=== PATIENT | female | born 1970 | race Caucasian/White ===

== ENCOUNTER → 2023-11-23 06:47 | Outpatient (REF) | payer BC, SELFPAY | LOC: HWWDC 06:47 | PROVIDERS: ATTENDING PHYSICIAN Physician Assistant Medical | DX: Z12.31 Encounter for screening mammogram for malignant neoplasm of breast (principal) | CPT/HCPCS: 77063; 77067 ==

== ENCOUNTER → 2024-09-22 14:20 | Outpatient (REF) | payer SELFPAY | LOC: HWRAD 14:20 | PROVIDERS: ATTENDING PHYSICIAN Physician Assistant Medical | DX: Z00.00 Encounter for general adult medical examination without abnormal findings (principal); E78.2 Mixed hyperlipidemia | CPT/HCPCS: 75571 ==

== ENCOUNTER → 2024-10-06 12:48 | Outpatient (REF) | payer BC, SELFPAY | LOC: RAD 12:48 | PROVIDERS: ATTENDING PHYSICIAN Physician Assistant Medical | DX: K76.9 Liver disease, unspecified (principal) | CPT/HCPCS: 74170; Q9967 ==

== ENCOUNTER → 2024-11-24 10:05 | Outpatient (REF) | payer BC, SELFPAY | LOC: HWWDC 10:05 | PROVIDERS: ATTENDING PHYSICIAN Obstetrics & Gynecology Gynecology; FAMILY PHYSICIAN Physician Assistant Medical | DX: Z12.31 Encounter for screening mammogram for malignant neoplasm of breast (principal) | CPT/HCPCS: 77063; 77067 ==

== ENCOUNTER → 2024-11-29 08:57 | Outpatient (REF) | payer BC, SELFPAY | LOC: RCS 08:57 | PROVIDERS: ATTENDING PHYSICIAN Internal Medicine Cardiovascular Disease; FAMILY PHYSICIAN Physician Assistant Medical | DX: R00.2 Palpitations (principal); Z82.3 Family history of stroke | CPT/HCPCS: 93307 ==

== ENCOUNTER → 2025-02-24 06:43 | Outpatient (REF) | payer BC, SELFPAY | LOC: HWRAD 06:43 | PROVIDERS: ATTENDING PHYSICIAN Internal Medicine Gastroenterology; FAMILY PHYSICIAN Physician Assistant Medical | DX: K76.89 Other specified diseases of liver (principal) | CPT/HCPCS: 76700 ==